=== PATIENT | female | born 1985 | race Caucasian/White ===

== ENCOUNTER 2017-10-12 18:52 | Outpatient (CLI) | payer OTHER | END 2017-10-12 20:50 | disposition home or self-care (01) | LOC: OBT 18:52 → L-D 18:53 → OBT 20:50 | DX: O99.612 Diseases of the digestive system complicating pregnancy, second trimester (principal); K80.10 Calculus of gallbladder with chronic cholecystitis without obstruction; Z3A.20 20 weeks gestation of pregnancy | CPT/HCPCS: 76705 ==

== ENCOUNTER 2018-02-18 04:40 | Inpatient (IN) | payer OTHER ==
[2018-02-18 06:10] LABS: ADD UMIC YES; UR ASCORBIC ACID NEGATIVE (NEGATIVE); UR BACTERIA FEW /HPF (NONE SEEN); UR BILIRUBIN (Dip) NEGATIVE (NEGATIVE); UR BLOOD (Dip) 2+ mg/dL (NEGATIVE); UR CLARITY CLEAR (CLEAR); UR COLOR YELLOW (YELLOW); UR GLUCOSE (Dip) NEGATIVE (NEGATIVE); UR KETONES (Dip) NEGATIVE (NEGATIVE); UR LEUKOCYTE ESTERASE (Dip) NEGATIVE Leu/ul (NEGATIVE); UR NITRITE (Dip) NEGATIVE (NEGATIVE); UR RBC 1 /HPF (0-5); UR SPECIFIC GRAVITY (Dip) 1.013 (1.003-1.030); UR SQUAMOUS EPITHELIAL CELL FEW /HPF (FEW); UR TOTAL PROTEIN (Dip) NEGATIVE (NEGATIVE); UR UROBILINOGEN (Dip) NEGATIVE (NEGATIVE); UR WBC 1 /HPF (0-5)
[2018-02-18] MEDS ORDERED: OXYTOCIN 30 UNITS/LR 500 ML IV ×2 (08:30)
[2018-02-18] MEDS ORDERED: MISOPROSTOL 200 MCG TAB PR (08:30)
[2018-02-18] MEDS ORDERED: METHYLERGONOVINE 0.2 MG INJ IM (08:30)
[2018-02-18] MEDS ORDERED: BUTORPHANOL 2 MG INJ IV (08:30)
[2018-02-18] MEDS ORDERED: CARBOPROST 250 MCG INJ IM (08:30)
[2018-02-18] MEDS ORDERED: IBUPROFEN 600 MG TAB PO (08:30)
[2018-02-18 10:55] LABS: ADD MAN DIFF? NO
[2018-02-18 11:00] LABS: BASOPHILS % 0.2 % (0.0-2.0); EOSINOPHILS # 0.1 10^3/ul (0.0-0.5); EOSINOPHILS % 1.1 % (0.0-7.0); HEMATOCRIT 37.7 % (37.0-47.0); HEMOGLOBIN 12.4 g/dl (12.0-16.0); LYMPHOCYTES # 1.4 10^3/ul (0.8-2.9); MEAN CORPUSCULAR HEMOGLOBIN 27.5 pg (29.0-33.0); MEAN CORPUSCULAR HGB CONC 32.9 g/dl (32.0-37.0); MEAN CORPUSCULAR VOLUME 83.6 fl (82.0-101.0); MEAN PLATELET VOLUME 10.9 fl (7.4-10.4); MONOCYTE # 0.6 10^3/ul (0.3-0.9); MONOCYTES % 6.1 % (0.0-11.0); NEUTROPHIL # 8.2 10^3/ul (1.6-7.5); PLATELET COUNT 181 10^3/UL (140-415); RED BLOOD COUNT 4.51 10^6/ul (4.20-5.40); RED CELL DISTRIBUTION WIDTH 14.5 % (11.5-14.5)
[2018-02-18 11:00] LABS: WHITE BLOOD COUNT 10.4 10^3/ul (4.8-10.8)
[2018-02-18 11:22] LABS: INR 0.93; PROTIME 12.5 Sec (11.9-14.9)
[2018-02-18 11:23] LABS: PARTIAL THROMBOPLASTIN TIME 30.3 Sec (25.0-35.0)
[2018-02-18] MEDS: MINERAL OIL LIGHT 10 ML VIAL TOP (14:13)
[2018-02-18] MEDS: LIDOCAINE 1% (MPF) 30 ML INJ INJ (14:33)
[2018-02-18] MEDS: OXYTOCIN 30 UNITS/LR 500 ML IV ×3 (14:36→17:08)
[2018-02-18] MEDS: LACTATED RINGER'S 1,000 ML IV* (14:37)
[2018-02-18] MEDS ORDERED: OXYCODONE/ASPIRIN (4.88/325) TAB PO ×2 (17:30)
[2018-02-18] MEDS ORDERED: ONDANSETRON 4 MG INJ IV (17:30)
[2018-02-18] MEDS ORDERED: HYDROCODONE/APAP (5/325) TAB PO ×2 (17:30)
[2018-02-18 17:51] LABS: RAPID PLASMA REAGIN NONREACTIVE (NR)
[2018-02-18] MEDS: IBUPROFEN 600 MG TAB PO (18:11)
[2018-02-18] MEDS: BENZOCAINE 20% 56 ML SPRAY TOP (18:12)
[2018-02-18] MEDS: WITCH HAZEL/GLYCERIN PAD PR (18:12)
[2018-02-18] MEDS: DIBUCAINE 1% 30 GM OINT PR (18:13)
[2018-02-18] MEDS: LANOLIN 7 GM TUBE TOP (18:13)
[2018-02-18 18:37] LABS: HEPATITIS B SURFACE ANTIGEN NEGATIVE (NEGATIVE)
[2018-02-19] MEDS: IBUPROFEN 600 MG TAB PO ×5 (00:19→23:58)
[2018-02-19] MEDS: OXYTOCIN 30 UNITS/LR 500 ML IV (01:45)
[2018-02-19 08:51] LABS: ADD MAN DIFF? NO
[2018-02-19 08:59] LABS: WHITE BLOOD COUNT 12.5 10^3/ul (4.8-10.8)
[2018-02-19 08:59] LABS: BASOPHILS % 0.3 % (0.0-2.0); EOSINOPHILS # 0.1 10^3/ul (0.0-0.5); EOSINOPHILS % 0.6 % (0.0-7.0); HEMATOCRIT 33.9 % (37.0-47.0); HEMOGLOBIN 11.4 g/dl (12.0-16.0); LYMPHOCYTES # 1.4 10^3/ul (0.8-2.9); LYMPHOCYTES % 10.9 % (15.0-51.0); MEAN CORPUSCULAR HEMOGLOBIN 28.6 pg (29.0-33.0); MEAN CORPUSCULAR HGB CONC 33.6 g/dl (32.0-37.0); MEAN PLATELET VOLUME 10.4 fl (7.4-10.4); MONOCYTE # 0.5 10^3/ul (0.3-0.9); MONOCYTES % 3.9 % (0.0-11.0); NEUTROPHIL # 10.5 10^3/ul (1.6-7.5); NEUTROPHILS % 83.7 % (39.0-77.0); PLATELET COUNT 185 10^3/UL (140-415); RED BLOOD COUNT 3.99 10^6/ul (4.20-5.40); RED CELL DISTRIBUTION WIDTH 14.1 % (11.5-14.5)
[2018-02-19] MEDS: ACETAMINOPHEN 325 MG TAB PO (21:07)
[2018-02-19] MEDS: SENNA/DOCUSATE NA (8.6MG/50MG) TAB PO (21:07)
[2018-02-20] MEDS: IBUPROFEN 600 MG TAB PO ×2 (05:46→11:47)
[2018-02-20] MEDS: MEASLES,MUMPS,RUBELLA VACCINE INJ SC* (09:00)
[2018-02-20] MEDS: SENNA/DOCUSATE NA (8.6MG/50MG) TAB PO (09:00)
== END 2018-02-20 15:43 | disposition home or self-care (01) | DRG 775 ==
LOC: OBT 04:40 → L-D 04:40 → OBT 07:37 → L-D 08:37 → PP1 16:37
PROC: 10E0XZZ Delivery of Products of Conception, External Approach (ICD-10-PCS; principal; 2018-02-18)
PROC: 0HQ9XZZ Repair Perineum Skin, External Approach (ICD-10-PCS; 2018-02-18)
PROC: 4A1HXCZ Monitoring of Products of Conception, Cardiac Rate, External Approach (ICD-10-PCS; 2018-02-18)
DX: O70.0 First degree perineal laceration during delivery (principal); Z3A.38 38 weeks gestation of pregnancy; Z37.0 Single live birth
CPT/HCPCS: 76818; 81001; 85025; 85610; 85730; 86592; 86850; 86900; 86901; 87340; 99464